=== PATIENT | female | born 1980 | race Caucasian/White ===

== ENCOUNTER 2021-08-27 10:46 | Emergency (ER) | payer OTHER ==
[2021-08-27 11:55] LABS: HEMOGLOBIN 17.5 gm/dl (12.3-15.3); RED BLOOD COUNT 5.97 M/UL (4.00-5.10); WHITE BLOOD COUNT 8.4 K/UL (4.5-11.0)
[2021-08-27 12:34] LABS: BUN/CREATININE RATIO 13 (0-10)
[2021-08-27] MEDS ORDERED: CEPHALEXIN500 M1 PO (16:01)
[2021-08-27] MEDS ORDERED: DIFLUCAN150 MG PO (16:01)
== END 2021-08-27 16:36 | disposition home or self-care (01) ==
LOC: ER1 10:46
PROVIDERS: Physician Assistant
DX: R07.89 Other chest pain (principal); N39.0 Urinary tract infection, site not specified; B37.3 Candidiasis of vulva and vagina; Z87.442 Personal history of urinary calculi; F17.200 Nicotine dependence, unspecified, uncomplicated
CPT/HCPCS: 71045; 80053; 81001; 82550; 82553; 83735; 84484; 84703; 85025; 85379; 87086; 93005; 96374; 99285; J1885